=== PATIENT | male | born 1955 | race Caucasian/White ===

== ENCOUNTER 2017-12-07 07:02 | Inpatient (IN) | payer BC ==
[2017-12-05 15:36] LABS: CLARITY,URINE CLEAR (Clear); COLOR,URINE YELLOW (Yellow); GLUCOSE, URINE NEGATIVE (Neg); KETONES,URINE NEGATIVE (Neg); LEUKOCYTE ESTERASE ,URINE NEGATIVE (Neg); NITRITES, URINE NEGATIVE (Neg); OCCULT BLOOD,URINE NEGATIVE (Neg); PROTEIN,URINE NEGATIVE (Neg); UROBILINOGEN,URINE 0.2 E.U/dL (0.2-1.0)
[2017-12-05 15:40] LABS: BASOPHILS # (AUTO) 0.1 X10'3 (0-0.2); BASOPHILS % (AUTO) 0.6 % (0-1); EOSINOPHILS # (AUTO) 0.4 X10'3 (0-0.9); EOSINOPHILS % (AUTO) 4.5 % (0-6); LYMPHOCYTES # (AUTO) 3.1 X10'3 (1.1-4.8); LYMPHOCYTES % (AUTO) 31.1 % (21-51); MEAN CORPUSCULAR HGB CONC 34.4 % (33.0-36.5); MEAN CORPUSCULAR VOLUME 90.2 FL (78-98); MONOCYTES # (AUTO) 0.8 X10'3 (0-0.9); MONOCYTES % (AUTO) 8.2 % (2-12); NEUTROPHILS # (AUTO) 5.5 X10'3 (1.8-7.7); NEUTROPHILS % (AUTO) 55.6 % (42-75); PRE OP HEMATOCRIT 40.9 % (42.0-52.0); PRE OP HEMOGLOBIN 14.1 g/dL (14.0-17.9); PRE OP PLATELET COUNT 206 X10'3 (140-440); PRE OP PROTIME 10.6 SECONDS (9.0-12.0); RED BLOOD COUNT 4.53 X10'6 (4.70-6.10); RED CELL DISTRIBUTION WIDTH 13.5 % (11.5-14.5)
[2017-12-05 15:40] LABS: UA COLLECTION TYPE CLN CATCH MIDSTREAM
[2017-12-05 15:48] LABS: ALBUMIN 3.4 G/DL (3.4-5.0); ALBUMIN/GLOBULIN RATIO 0.9 (1.1-1.5); ALKALINE PHOSPHATASE 55 IU/L (46-116); BLOOD UREA NITROGEN 28 MG/DL (7-18); BUN/CREATININE RATIO 18.7 (5.4-32.0); CALCIUM 9.1 MG/DL (8.5-10.1); CHLORIDE 107 MMOL/L (99-107); PRE OP ALT 33 U/L (30-65); PRE OP ANION GAP 7 (8-16); PRE OP AST 26 U/L (10-37); PRE OP BILIRUB, TOTAL 0.3 MG/DL (0.0-1.0); PRE OP GLUCOSE 101 MG/DL (70-104); PRE OP POTASSIUM 4.4 MMOL/L (3.4-5.1); PRE OP SODIUM 145 MMOL/L (135-145); TOTAL CARBON DIOXIDE 30.7 MMOL/L (24-32); TOTAL PROTEIN 7.4 G/DL (6.4-8.2); eGFR 47 ML/MIN
[~2017-12-07] VITALS: Ht 170.2 cm; Wt 133.1 kg
[2017-12-07] VITALS (22 sets, daily range): BP systolic 108–191; BP diastolic 48–104
[~2017-12-07 07:02] MED LIST: ALLO100T PO; GEMF600T3 PO; HYDR-565 PO; OLME1TAB21 PO; ceFAZolin inj. 3,000 MG in normal saline 100ml IV soln 100 ML IV ONE; famotidine 20mg tablet PO ONE; ringers solution, lacted 1,000 ML IV SCH
[2017-12-07] MEDS ORDERED: nitroGLYCERIN-Tridil 50MG/D5W 250 ML IV PRN ×2 (07:30→08:30)
[2017-12-07] MEDS ORDERED: phenylephrine inj 10 MG in normal saline 250ml IV soln 250 ML IV PRN (07:30)
[2017-12-07] MEDS ORDERED: LIDOcaine 1% (10mg/ml) 2ml vial ONE (07:39)
[2017-12-07] MEDS ORDERED: heparin 10,000 units/1 ML INJ ONE (07:55)
[2017-12-07] MEDS ORDERED: LIDOcaine 1% 30ml preserv. free vial ONE (07:55)
[2017-12-07] MEDS ORDERED: fentaNYL/PF 50MCG/1 ML 2ML syringe IV PRN ×2 (08:30)
[2017-12-07] MEDS ORDERED: ringers solution, lacted 1,000 ML IV SCH (08:30)
[2017-12-07] MEDS ORDERED: labetalol 20mg/4ml (5mg/ml) syringe IV PRN (08:30)
[2017-12-07] MEDS ORDERED: ondansetron/PF 4mg/2ml inj IV PRN ×2 (08:30→13:40)
[2017-12-07] MEDS ORDERED: hydrALAZINE 20mg/ml inj. IV PRN (08:30)
[2017-12-07] MEDS ORDERED: morphine 4 MG/ML inj SYRINge IV PRN ×4 (08:30→13:40)
[2017-12-07] MEDS ORDERED: phenylephrine inj 10 MG in normal saline 250ml IV soln 249 ML IV SCH (08:30)
[2017-12-07] MEDS ORDERED: sevoflurane 250ml liquid IH ONE (10:19)
[2017-12-07] MEDS ORDERED: fentaNYL/PF 50MCG/1 ML 2ML syringe ONE ×4 (10:24→13:50)
[2017-12-07] MEDS ORDERED: propofol inj 20 ML IV ONE (10:24)
[2017-12-07] MEDS ORDERED: midazolam 2 mg/2 ml injection ONE (10:24)
[2017-12-07] MEDS ORDERED: rocuronium 10mg/ml inj IV ONE ×2 (10:24→12:09)
[2017-12-07] MEDS ORDERED: LIDOcaine 2% (20mg/ml) 5ml vial ONE (10:24)
[2017-12-07] MEDS ORDERED: heparin 1,000unit/ml 10ml vial 10 ML ONE (11:51)
[2017-12-07] MEDS ORDERED: glycopyrrolate 0.2mg/ml inj ONE (12:08)
[2017-12-07] MEDS ORDERED: neostigmine methylsulfate 1 MG/ML 10ml vial ONE (12:08)
[2017-12-07] MEDS ORDERED: HYDROcodone/acetaminophen 10/325mg tab PO PRN (13:15)
[2017-12-07] MEDS: normal saline 1000ml 1,000 ML IV SCH ×3 (13:21→23:21)
[2017-12-07] MEDS ORDERED: HYDROcodone/acetaminophen 5mg/325mg tablet PO PRN (13:25)
[2017-12-07] MEDS ORDERED: magnesium Cl slow-release 64mg tablet PO PRN (13:40)
[2017-12-07] MEDS ORDERED: potassium Cl 40MEQ/NS 500ml 500 ML IV PRN (13:40)
[2017-12-07] MEDS ORDERED: ipratropium/albuterol 3ml nebule NEB PRN (13:40)
[2017-12-07] MEDS ORDERED: sodium phosphate inj. 15 MMOL in dextrose 5%-water 150 ML IV PRN (13:40)
[2017-12-07] MEDS ORDERED: magnesium 4gm in 100ml NS 100 ML IV PRN (13:40)
[2017-12-07] MEDS ORDERED: Neutra Phos packet PO PRN (13:40)
[2017-12-07] MEDS ORDERED: acetaminophen 325mg tablet PO PRN ×2 (13:40)
[2017-12-07] MEDS ORDERED: potassium Cl 20 mEq SR tablet PO PRN ×2 (13:40)
[2017-12-07] MEDS ORDERED: magnesium/D5W IVPB 50 ML IV PRN (13:40)
[2017-12-07] MEDS ORDERED: sodium phosphate inj. 30 MMOL in dextrose 5%-water 250 ML IV PRN (13:40)
[2017-12-07] MEDS: HYDROcodone/acetaminophen 10/325mg tab PO PRN ×2 (17:58→22:43)
[2017-12-07] MEDS: famotidine/PF 10 mg/ml inj IV SCH (20:26)
[2017-12-07] MEDS: allopurinol 100mg tablet PO SCH (20:26)
[2017-12-07] MEDS: gemfibrozil 600mg tablet PO SCH (20:26)
[2017-12-08] VITALS (15 sets, daily range): BP systolic 96–193; BP diastolic 46–92
[2017-12-08] MEDS: normal saline 1000ml 1,000 ML IV SCH (03:00)
[2017-12-08 03:02] LABS: BASOPHILS % (AUTO) 0.4 % (0-1); EOSINOPHILS # (AUTO) 0.5 X10'3 (0-0.9); HEMOGLOBIN 12.6 g/dl (14.0-17.9); LYMPHOCYTES # (AUTO) 2.5 X10'3 (1.1-4.8); LYMPHOCYTES % (AUTO) 21.5 % (21-51); MEAN CORPUSCULAR HEMOGLOBIN 30.8 PG (27.0-31.0); MEAN CORPUSCULAR HGB CONC 34.2 % (33.0-36.5); MEAN CORPUSCULAR VOLUME 89.9 FL (78-98); MEAN PLATELET VOLUME 7.8 FL (7.4-10.4); MONOCYTES # (AUTO) 0.8 X10'3 (0-0.9); MONOCYTES % (AUTO) 7.2 % (2-12); NEUTROPHILS # (AUTO) 7.9 X10'3 (1.8-7.7); NEUTROPHILS % (AUTO) 66.9 % (42-75); PLATELET COUNT 197 X10'3 (140-440); RED BLOOD COUNT 4.11 X10'6 (4.70-6.10); RED CELL DISTRIBUTION WIDTH 13.3 % (11.5-14.5); WHITE BLOOD COUNT 11.8 X10'3 (4.5-11.0)
[2017-12-08 03:09] LABS: PROTHROMBIN TIME 10.5 SECONDS (9.0-12.0)
[2017-12-08 03:30] LABS: ALANINE AMINOTRANSFERASE 25 U/L (12-78); ALBUMIN 2.9 G/DL (3.4-5.0); ALBUMIN/GLOBULIN RATIO 0.8 (1.1-1.5); ALKALINE PHOSPHATASE 47 IU/L (46-116); ANION GAP 6 (8-16); ASPARTATE AMINO TRANSFERASE 22 U/L (10-37); BILIRUBIN,TOTAL 0.3 MG/DL (0.1-1.0); BLOOD UREA NITROGEN 23 MG/DL (7-18); BUN/CREATININE RATIO 18.9 (5.4-32.0); CALCIUM 8.3 MG/DL (8.5-10.1); CHLORIDE 106 MMOL/L (99-107); CREATININE 1.22 MG/DL (0.60-1.10); GLUCOSE 94 MG/DL (70-104); LDL CHOLESTEROL 72 MG/DL (50-100); MAGNESIUM 1.8 MG/DL (1.5-2.4); PHOSPHORUS 4.3 MG/DL (2.3-4.5); POTASSIUM 4.4 MMOL/L (3.5-5.1); SODIUM 142 MMOL/L (135-145); TOTAL CARBON DIOXIDE 30.1 MMOL/L (24-32); TOTAL PROTEIN 6.5 G/DL (6.4-8.2); eGFR 60 ML/MIN
[2017-12-08] MEDS: allopurinol 100mg tablet PO SCH (07:58)
[2017-12-08] MEDS: gemfibrozil 600mg tablet PO SCH (08:00)
[2017-12-08] MEDS ORDERED: losartan 50mg tablet PO SCH (08:00)
[2017-12-08] MEDS ORDERED: HYDROchlorothiazide 12.5mg capsule PO SCH (08:00)
[2017-12-08] MEDS: famotidine/PF 10 mg/ml inj IV SCH (08:00)
[2017-12-08] MEDS: HYDROcodone/acetaminophen 10/325mg tab PO PRN ×2 (08:05→12:07)
[2017-12-08] MEDS ORDERED: famotidine 20mg tablet PO SCH (12:28)
[2017-12-08] MEDS ORDERED: magnesium hydroxide 30ml (MOM) UD suspension PO ONE (14:40)
[2017-12-09] MEDS ORDERED: bisacodyl 10mg suppository rectal RC PRN (13:40)
== END 2017-12-08 16:05 | disposition home or self-care (01) | DRG 38 ==
LOC: PAS IN 07:02 → EDSTATUS 10:30 → CICU 2S 13:41
PROVIDERS: ADMIT Surgery; ATTEND Internal Medicine Critical Care Medicine
PROC: 03CN0ZZ Extirpation of Matter from Left External Carotid Artery, Open Approach (ICD-10-PCS; 2017-12-07)
PROC: 02HV33Z Insertion of Infusion Device into Superior Vena Cava, Percutaneous Approach (ICD-10-PCS; 2017-12-07)
PROC: 03CL0ZZ Extirpation of Matter from Left Internal Carotid Artery, Open Approach (ICD-10-PCS; principal; 2017-12-07 10:19)
DX: I65.22 Occlusion and stenosis of left carotid artery (principal); Z68.42 Body mass index [BMI] 45.0-49.9, adult; E66.01 Morbid (severe) obesity due to excess calories; E78.5 Hyperlipidemia, unspecified; G47.33 Obstructive sleep apnea (adult) (pediatric); I10 Essential (primary) hypertension; Z96.612 Presence of left artificial shoulder joint; Z96.653 Presence of artificial knee joint, bilateral; M19.90 Unspecified osteoarthritis, unspecified site; J02.9 Acute pharyngitis, unspecified; Z87.891 Personal history of nicotine dependence; Z88.5 Allergy status to narcotic agent; Z79.899 Other long term (current) drug therapy
CPT/HCPCS: 36415; 71045; 71046; 80053; 81003; 82948; 83721; 83735; 84100; 84443; 85025; 85610; 85730; 86885; 86900; 86901; 87070; 93005; 94760; 95813; 95816; 97116; 97161; A4333; A6257; A6258; A6449; A7000; J0690; J1644; J2001; J2250; J2270; J2370; J2405; J2704; J2710; J3010; J3490; J7030; J7120